=== PATIENT | male | born 1940 | race Caucasian/White ===

== ENCOUNTER → 2016-12-01 | Outpatient (CLI) | payer MEDICARE, OTHER ==
[~2016-12-01] MED LIST: ALPR0.2550 PO; ALPR0.5T72 PO; ASP81CT PO; ASP81TEC PO; ASPI-892 PO; ATOR10TA66 PO; CLOP75TA PO; DICY20TA10 PO; EZET10TA5 PO; FENO145T2 PO; GABA100T PO; HYDR-3714 PO; ISM30TCR PO; METO25TA PO; MIRT15TA6 PO; OMEG-12 PO; OMEP40CA36 PO; ONDA8TAB2 PO; OXYC-12 PO; PNT40TEC PO; POLY17PO23 PO; PRAS10TA6 PO; PRED20TA PO; TRAM50TA2 PO; TRIA1TAB5 PO; UBID100C27 PO
--- OUTSIDE RECORDS SUMMARY | 2016-12-01 10:46 | XMS REPORT | Continuity of Care Document ---
Author Author [facility] Organization [facility] Address Unknown Phone Unavailable Care Team Providers Care Service Writer Name Role Phone MOLLY BARNHART MD PCP Insurance Providers Payer Name Policy Number Subscriber Name Relationship Wps Medicare [id number] Ingrid Shaikh 18 Self / Same As Patient Comm Crossover Enter Ins Name [id number] Ingrid Lackey 18 Self / Same As Patient Advance Directives Directive Response Recorded Date/Time Advance Directives No 04/25/15 11:17am Health Care Power of J2Ee Java Developer No 02/03/12 2:15pm Organ Donor No 04/25/15 11:17am Resuscitation Status Full Code 04/25/15 11:17am Problems No known problems or medical conditions. Medications Medication Dose Route Sig Days/Qty Instructions Order Date Discontinued Date Status Gabapentin (Neurontin) 100 Mg PO THREE TIMES A DAY 02/28/11 Discontinued Alprazolam 0.25 Mg PO Q8HR PRN 02/28/11 04/25/15 Discontinued Dicyclomine Hcl 20 Mg PO TWICE A DAY PRN 02/28/11 Active Metoprolol Succinate (Toprol Xl) 12.5 Mg PO TWICE A DAY take half tab twice daily 02/28/11 Active Ezetimibe 10 Mg PO DAILY 02/28/11 04/25/15 Discontinued Clopidogrel Bisulfate 75 Mg PO DAILY 02/28/11 03/25/11 Discontinued Triamterene/Hydrochlorothiazid 0.5 Tab PO DAILY 02/28/11 03/26/11 Discontinued Aspirin 81 Mg PO DAILY 02/28/11 03/26/11 Discontinued Ubidecarenone 100 Mg PO BEDTIME 02/28/11 04/25/15 Discontinued Omeprazole 40 Mg PO DAILY PRN 02/28/11 03/26/11 Discontinued Isosorbide Mononitrate 30 Mg PO DAILY 03/02/11 02/03/12 Discontinued Prasugrel Hydrochloride 10 Mg PO DAILY 03/02/11 03/26/11 Discontinued Aspirin 162 Mg PO DAILY 03/26/11 02/03/12 Discontinued Omeprazole 20 Mg PO AC AND HS 03/26/11 04/25/15 Discontinued Prasugrel Hydrochloride 10 Mg PO DAILY 03/26/11 04/25/15 Discontinued Isosorbide Mononitrate 30 Mg PO DAILY 30 Qty 02/04/12 04/25/15 Discontinued Clopidogrel Bisulfate 1 Each PO DAILY 07/23/13 Active Fenofibrate 1 Each PO DAILY 07/23/13 04/25/15 Discontinued Aspirin 81 Mg PO 04/25/15 Active Pantoprazole Sod 40 Mg PO DAILY 04/25/15 Active Atorvastatin Calcium 10 Mg PO BEDTIME 04/25/15 Active Mirtazapine (Remeron) 1 Each PO BEDTIME 04/25/15 Active Ondansetron Hcl 8 Mg PO THREE TIMES A DAY PRN NAUSEA 04/25/15 Active Alprazolam 0.25 Mg PO THREE TIMES A DAY PRN ANXIETY 04/25/15 Active Tramadol Hcl 50 Mg PO THREE TIMES A DAY PRN PAIN 04/25/15 Active [place]-3/Dha/Epa/Fish Oil 1,000 Mg PO THREE TIMES A DAY 04/25/15 Active Social History Social History Problem Response Recorded Date/Time Recent Foreign Travel No 04/25/2015 11:26am Smoking Status Never a Smoker 04/25/2015 11:27am Query Response Start Date Stop Date Smoking Status Never a Smoker Hospital Discharge Instructions No hospital discharge instructions. Plan of Care No plan of care. Functional Status Query Response Date Recorded Patient Orientation Person Place Time Situation April 25, 2015 7:12pm Allergies, Adverse Reactions, Alerts Allergen Type Severity Reaction Status Last Updated Sulfa (Sulfonamide Antibiotics) ([id number]) Allergy NAUSEA Active 02/28 Immunizations No immunization records. Vital Signs Acute Vital Signs Vital Response Date/Time Temperature (Fahrenheit) 97.6 degrees F (97.6 - 99.5) Temperature (Calculated Celsius) 36.61102 degrees C (36.4 - 37.5) Temperature Source Temporal Pulse Rate (adult) 59 bpm (60 - 90) Respiratory Rate 20 bpm (12 - 24) O2 Sat by Pulse Oximetry 97 % (88 - 100) Blood Pressure 110/69 mm Hg Blood Pressure Mean 83 mm Hg Pain Pain Intensity 0 Height (Feet) 5 feet Height (Inches) 9.00 inches Height (Calculated Centimeters) 175.061905 cm Weight (Pounds) 180 pounds Weight (Calculated Grams) 41797.627 gm Weight (Calculated Kilograms) 81.713379 kilograms Calculated BMI 26.58 Results Laboratory Results Test Name Result Units Flags Reference Collection Date/Time Result Date/ Time Comments White Blood Count 5.3 10^3/uL 4.3-11.0 04/25/2015 11:04/25/2015 11 :31am Red Blood Count 4.86 10^6/uL 4.35-5.85 04/25/2015 11:04/25/2015 11 :31am Hemoglobin 15.0 G/DL 13.3-17.7 04/25/2015 11:04/25/2015 11:31am Hematocrit 42 % 40-54 04/25/2015 11:04/25/2015 11:31am Mean Corpuscular Volume 86 FL 80-99 04/25/2015 11:04/25/2015 11: 31am Mean Corpuscular Hemoglobin 31 PG 25-34 04/25/2015 11:04/25/2015 11:31am Mean Corpuscular Hemoglobin Concent 36 G/DL 32-36 04/25/2015 11: 11:31am Red Cell Distribution Width 13.5 % 10.0-14.5 04/25/2015 11:2014 11:31am Platelet Count 145 10^3/uL 130-400 04/25/2015 11:04/25/2015 11: 31am Mean Platelet Volume 10.3 FL 7.4-10.4 04/25/2015 11:04/25/2015 11: 31am Prothrombin Time 13.6 SEC 12.2-14.7 04/25/2015 11:24am 04/25/2015 11: 42am INR Comment 1.1 0.8-1.4 04/25/2015 11:24am 04/25/2015 11:42am INTERPRETIVE DATA SUGGESTED THERAPEUTIC RANGE FOR INR'S: VENOUS THROMBOSIS, PULMONARY EMBOLISM, OR PREVENTION OF SYSTEMIC EMBOLISM (EG. IN ATRIAL FIBRILLATION): 2.0 - 3.0 MECHANICAL PROSTHETIC HEART VALVES: 2.5 - 3.5* *NOTE: INR'S UP TO 4.5 MAY BE NECESSARY IN SELECTED GROUPS OF HIGH RISK PATIENTS. [place] [place] [employer]ST PH[employer]ICIANS CONSENSUS CONFERENCE ON ANTITHROMBOTIC THERAPY (2000). Activated Partial Thromboplast Time 34 SEC 24-35 04/25/2015 11:24am 11:42am Urine Color YELLOW 04/25/2015 11:04/25/2015 11:40am Urine Clarity CLEAR 04/25/2015 11:04/25/2015 11:40am Urine pH 6 5-9 04/25/2015 11:04/25/2015 11:40am Urine Specific [place] 1.015 * 1.016-1.022 04/25/2015 11:2014 11:40am Urine Protein NEGATIVE NEGATIVE 04/25/2015 11:10a04/25/2015 11: 40am Urine Glucose (UA) NEGATIVE NEGATIVE 04/25/2015 11:04/25/2015 11 :40am Urine RBC (Auto) NEGATIVE NEGATIVE 04/25/2015 11:04/25/2015 11: 40am Urine Ketones NEGATIVE NEGATIVE 04/25/2015 11:10a04/25/2015 11: 40am Urine Nitrite NEGATIVE NEGATIVE 04/25/2015 11:10a04/25/2015 11: 40am Urine Bilirubin NEGATIVE NEGATIVE 04/25/2015 11:10a04/25/2015 11: 40am Urine Urobilinogen NORMAL MG/DL NORMAL 04/25/2015 11:04/25/2015 11 :40am Urine Leukocyte Esterase NEGATIVE NEGATIVE 04/25/2015 11:10a2014 11:40am Urine RBC NONE /HPF 04/25/2015 11:10am 04/25/2015 11:40am Urine WBC NONE /HPF 04/25/2015 11:10a04/25/2015 11:40am Urine Bacteria NEGATIVE /HPF 04/25/2015 11:10a04/25/2015 11:40am Urine Squamous Epithelial Cells NONE /HPF 04/25/2015 11:2014 11:40am Urine Crystals NONE /LPF 04/25/2015 11:04/25/2015 11:40am Urine Casts NONE /LPF 04/25/2015 11:04/25/2015 11:40am Urine Mucus NEGATIVE /LPF 04/25/2015 11:04/25/2015 11:40am Urine Culture Indicated NO 04/25/2015 11:04/25/2015 11:40am Sodium Level 143 MMOL/L 135-145 04/25/2015 11:2404/25/2015 11:50am Potassium Level 4.3 MMOL/L 3.6-5.0 04/25/2015 11:2404/25/2015 11: 50am Chloride Level 109 MMOL/L H 98-107 04/25/2015 11:2404/25/2015 11:50am Carbon Dioxide Level 26 MMOL/L 21-32 04/25/2015 11:2404/25/2015 11: 50am Anion Gap 8 MMOL/L 5-14 04/25/2015 11:2404/25/2015 11:50am Blood Urea Nitrogen 19 MG/DL H 7-18 04/25/2015 11:04/25/2015 11: 50am Creatinine 1.28 MG/DL 0.60-1.30 04/25/2015 11:2404/25/2015 11:50am BUN/Creatinine Ratio 15 04/25/2015 11:04/25/2015 11:50am Estimat Glomerular Filtration Rate 55 04/25/2015 11:242014 11:50am GFR INTERPRETIVE DATA UNITS FOR ESTIMATED GFR (eGFR): mL/min/1.73 M2 REFERENCE RANGE FOR ESTIMATED GFR (eGFR) eGFR NORMAL eGFR >60 MODERATELY DECREASED eGFR 30-59 SEVERLY DECREASED eGFR 15-29 KIDNEY FAILURE <15 (OR DIALYSIS) Glucose Level 94 MG/DL 70-105 04/25/2015 11:2404/25/2015 11:50am Calcium Level 9.7 MG/DL 8.5-10.1 04/25/2015 11:2404/25/2015 11:50am Total Bilirubin 1.0 MG/DL 0.1-1.0 04/25/2015 11:04/25/2015 11: 50am Alkaline Phosphatase 58 U/L 40-136 04/25/2015 11:2404/25/2015 11: 50am Aspartate Amino Transf (AST/SGOT) 21 U/L 5-34 04/25/2015 11:242014 11:50am Alanine Aminotransferase (ALT/SGPT) 30 U/L 0-55 04/25/2015 11:24 11:50am Total Protein 6.9 G/DL 6.4-8.2 04/25/2015 11:04/25/2015 11:50am Albumin 4.2 G/DL 3.2-4.5 04/25/2015 11:2404/25/2015 11:50am Triglycerides Level 60 MG/DL <150 04/25/2015 11:am 04/25/2015 11: 50am Cholesterol Level 164 MG/DL < 200 04/25/2015 11:24am 04/25/2015 11: 50am HDL Cholesterol 41 MG/DL 40-60 04/25/2015 11:24am 04/25/2015 11:50am LDL Cholesterol Direct 101 MG/DL 1-129 04/25/2015 11:24am 04/25/2015 11 :50am VLDL Cholesterol 12 MG/DL 5-40 04/25/2015 11:24am 04/25/2015 11:50am Procedures Procedure Status Date Provider(s) Color Doppler echocardiography completed 04/22/15 BISI CAMPO MD Tracing only of electrocardiogram completed 04/25/15 BISI CAMPO MD Encounters Encounter Location Date/Time Departed [facility] 04/25/15 10:55am Registered Clinic [facility] 04/22/15 8:50am
--- NOTE | 2016-12-02 09:41 | ECHOCARDIOGRAPHY REPORT ---
PROCEDURE PHYSICIAN: BISI CAMPO DATE OF PROCEDURE: 12/01/2016 TWO DIMENSIONAL ECHOCARDIOGRAM REPORT PRIMARY PHYSICIAN: OTHER PHYSICIAN: REFERRING PHYSICIAN: Dr. Raissa Childers ORDERING PHYSICIAN: INDICATION FOR THE PROCEDURE: 1. Coronary artery disease. 2. Hypertension. MEASUREMENTS DERIVED VALUES LV DIAMETER (LAX) NORMALS NORMALS Diastolic 4 (3.6-5.2) Eject. Fract. 60% (60%+/-6%) Systolic (2.3-3.9) Diastolic Vol. % Shortening (0.22-0.42) Systolic Vol. Aortic Root IVS THICKNESS Diastolic 1 (0.6-1.1) LVPW THICKNESS Diastolic 1 (0.6-1.1) LA DIAMETER Systolic 3 (2.1-3.7) FINDINGS: 1. Technically difficult study. 2. The left ventricle is normal in size with normal contractility. Systolic function appeared to be normal. Estimated ejection fraction 60%. 3. The left atrium is normal in size. No clot or thrombus were seen within the left atrium. 4. The right atrium and right ventricle are normal in size. No clot or thrombus were seen within the right side. 5. Mitral valve is normal in morphology with mild mitral regurgitation noted by color Doppler flow. No mitral valve prolapse. No mitral valve stenosis. 6. Aortic valve leaflets were not well visualized. There is no significant aortic stenosis or regurgitation seen. 7. Tricuspid valve is normal in morphology with mild tricuspid regurgitation noted by color Doppler flow. Doppler across tricuspid valve estimated pulmonary artery pressure of 15+ right atrial pressure. 8. Pulmonic valve is functioning normally. 9. No pericardial effusion. CONCLUSION: 1. Technically difficult study. 2. Normal left ventricular size and systolic function. Estimated ejection fraction 60%. 3. Mild mitral and tricuspid regurgitation. 4. Estimated pulmonary artery pressure of 25 mmHg. Job ID: [id number] Dictated Date: 12/01/2016 17:29:54 Chemical Economist Date: 12/02/2016 09:37:30 / bright
== END ==
LOC: CARD 10:42
PROVIDERS: ATTEND Physician Assistant
DX: I25.10 Atherosclerotic heart disease of native coronary artery without angina pectoris (principal); I65.23 Occlusion and stenosis of bilateral carotid arteries; E78.2 Mixed hyperlipidemia; I10 Essential (primary) hypertension
CPT/HCPCS: 93306

== ENCOUNTER → 2016-12-06 | Outpatient (CLI) | payer MEDICARE, OTHER ==
[~2016-12-06] MED LIST changes: +CATHETER FLUSH 10 ML SYR IV PRN; +REGADENOSON 0.4 MG/5 ML SYR (LEXISCAN) IV ONE
--- OUTSIDE RECORDS SUMMARY | 2016-12-06 07:30 | XMS REPORT | Continuity of Care Document ---
Author Author [facility] Organization [facility] Address Unknown Phone Unavailable Care Team Providers Care Software Quality Assurance Analyst Name Role Phone MOLLY BARNHART MD PCP Insurance Providers Payer Name Policy Number Subscriber Name Relationship Wps Medicare [id number] Ingrid Shaikh 18 Self / Same As Patient Comm Crossover Enter Ins Name [id number] Ingrid Lackey 19 Self / Same As Patient Advance Directives Directive Response Recorded Date/Time Advance Directives No 04/25/15 11:17am Health Care Power of Quilt Sewer No 02/03/12 2:15pm Organ Donor No 04/25/15 [...] TIMES A DAY PRN PAIN 04/25/[address]-3/Dha/Epa/Fish Oil 1,000 Mg PO THREE TIMES A [...] Reaction Status Last Updated Sulfa (Sulfonamide Antibiotics) ([id number]) Allergy NAUSEA Active 02/28 Immunizations No immunization records. Vital Signs Acute Vital Signs Vital Response Date/Time Temperature (Fahrenheit) 97.6 degrees F (97.6 - 99.5) Temperature (Calculated Celsius) 36.52267 degrees C (36.4 - 37.5) Temperature Source Temporal Pulse Rate (adult) 59 bpm (60 - 90) Respiratory Rate 20 bpm (12 - 24) O2 Sat by Pulse Oximetry 97 % (88 - 100) Blood Pressure 110/69 mm Hg Blood Pressure Mean 83 mm Hg Pain Pain Intensity 0 Height (Feet) 5 feet Height (Inches) 9.00 inches Height (Calculated Centimeters) 175.284735 cm Weight (Pounds) 180 pounds Weight (Calculated Grams) 85949.627 gm Weight (Calculated Kilograms) 81.047586 kilograms Calculated BMI 26.58 Results Laboratory Results [...] SELECTED GROUPS OF HIGH RISK PATIENTS. [place] [place] [employer] CONSENSUS CONFERENCE ON ANTITHROMBOTIC THERAPY (2000). Activated Partial Thromboplast Time 34 SEC 24-35 04/25/2015 11:24am 11:42am Urine Color YELLOW 04/25/2015 11:04/25/2015 11:40am Urine Clarity CLEAR 04/25/2015 11:04/25/2015 11:40am Urine pH 6 5-9 04/25/2015 11:04/25/2015 11:40am Urine Specific [place] 1.015 * 1.016-1.022 04/25/2015 11:2014 11:40am Urine [...] Location Date/Time Departed Surgical Day [facility] 04/25/15 10:55am Registered Clinic [facility] 04/22/15 8:50am
[2016-12-06 09:12] VITALS: BP 133/91
[2016-12-06 09:19] VITALS: BP 149/99
[2016-12-06 09:22] VITALS: BP 161/97
--- NOTE | 2016-12-06 12:24 | STRESS TEST ---
PROCEDURE PHYSICIAN: BISI CAMPO DATE OF PROCEDURE: 12/06/2016 LEXISCAN MYOVIEW STRESS TEST REPORT REFERRING PHYSICIAN: Dr. Raissa Childers INDICATION: Coronary artery disease. BASELINE HEART RATE: 62 BASELINE BLOOD PRESSURE: 133/90 BASELINE EKG: Sinus rhythm with no ischemic changes. SUMMARY: The patient was injected with 10.33 mCi of technetium 99 Myoview and the resting images were obtained. Then the patient received 0.4 mg of Lexiscan followed by 32.1 mCi of technetium 99 Myoview. Throughout the test, there were no EKG changes, occasional PVCs were noted during recovery. The resting and stress images were reviewed and compared in the short axis, horizontal long axis, and vertical long axis views. Review of the images showed diaphragmatic attenuation with typical male pattern. No significant ischemia or infarction on SPECT images. SSS is 3, SDS 1, TID value 1.09. On the gated images, the left ventricle appeared to be normal size with normal contractility. Calculated ejection fraction 67%. CONCLUSION: 1. The patient tolerated Lexiscan well. 2. Diaphragmatic attenuation with typical male pattern. No significant ischemia or infarction on SPECT images. 3. Normal left ventricular size with normal contractility. Calculated ejection fraction 67%. Job ID: [id number] Dictated Date: 12/06/2016 11:48:10 Cashier Payments Received Date: 12/06/2016 12:22:08 / bright
== END ==
LOC: CARD 07:27
PROVIDERS: ATTEND Physician Assistant
DX: I25.10 Atherosclerotic heart disease of native coronary artery without angina pectoris (principal); I65.23 Occlusion and stenosis of bilateral carotid arteries; E78.2 Mixed hyperlipidemia; I10 Essential (primary) hypertension
CPT/HCPCS: 78452; 93017

== ENCOUNTER → 2019-07-11 | Outpatient (CLI) | payer MEDICARE, OTHER ==
[~2019-07-11] VITALS: Ht 175 cm; Wt 85.0 kg
[2019-07-11 08:57] VITALS: BP 143/87
[2019-07-11 09:02] VITALS: BP 148/103
--- NOTE | 2019-07-12 08:08 | STRESS TEST ---
DATE OF SERVICE: 07/11/2019 LEXISCAN MYOVIEW STRESS TEST REPORT REFERRING PHYSICIAN: Dr. Childers. Baseline heart rate is 64. Baseline blood pressure 143/87. Baseline EKG is sinus rhythm with no ischemic changes. In summary, the patient was injected with 10.89 mCi of technetium-99 Myoview and the resting images were obtained. Then, the patient received 0.4 mg of Lexiscan followed by 30.4 mCi of technetium-99 Myoview. Throughout the test, there were no EKG changes. The resting and stress images were reviewed and compared in the short axis, horizontal long axis, and vertical long axis views. Review of the images showed diaphragmatic attenuation with mild decreased uptake at the mid to apical inferolateral wall with mild reversibility, no significant ischemia was noted. SSS is 3, SDS 1, TID value 1.04. On the gated images, the left ventricle appeared to be normal size with normal contractility. Calculated ejection fraction 68%. CONCLUSION: 1. The patient tolerated Lexiscan well. 2. Diaphragmatic attenuation with typical male pattern with no significant ischemia or infarction on SPECT images. 3. Normal left ventricular size with normal contractility. Calculated ejection fraction 68%. Job ID: [id number] DocumentID: [id number] Dictated Date: 07/12/2019 06:43:34 Gravity Prospecting Operator Date: 07/12/2019 08:07:48 Dictated By: BISI CAMPO MD
== END ==
LOC: CARD 06:55
PROVIDERS: ATTEND Internal Medicine Cardiovascular Disease
DX: I25.10 Atherosclerotic heart disease of native coronary artery without angina pectoris (principal); E78.5 Hyperlipidemia, unspecified; I10 Essential (primary) hypertension
CPT/HCPCS: 78452; 93017

== ENCOUNTER → 2022-07-07 | Outpatient (CLI) | payer MEDICARE ==
[~2022-07-07] VITALS: Ht 175 cm; Wt 88.0 kg
[~2022-07-07] MED LIST changes: -CATHETER FLUSH 10 ML SYR IV PRN; +CATHETER FLUSH 10 ML SYR IVP PRN
[2022-07-07 09:40] VITALS: BP 144/106
--- NOTE | 2022-07-07 11:36 | Cardiology Stress Test Report ---
Stress Test Report Date of Procedure/Referring: Date of Procedure: Jul 07, 2022 PCP Molly Barnhart MD Admitting Physician Admitting Physician: Attending Physician: Mabel Reyes Indications: CAD Baseline Heart Rate: 64 Baseline Blood Pressure: Blood Pressure Systolic: 144 Blood Pressure Diastolic: 106 Baseline Vitals Vital Signs Date Time Temp Pulse Resp B/P (MAP) Pulse Ox O2 Delivery O2 Flow Rate FiO2 07/07/22 09:40 66 144/106 (119) Baseline EKG: Baseline EKG: NSR Summary After explaining the procedure to the patient, he signed a consent and then brought to the stress nuclear laboratory. Patient received 0.4 mg Lexiscan for stress test, ECG, heart rate and blood pressure were monitored continuously. Resting and stress dose of radio tracer were injected, imaging was acquired and reviewed in short axis, horizontal long axis and vertical long axis views. TID: 1.19 SSS: 7 SDS: 5 EF: 70 1. Patient tolerated Lexiscan well 2. Diaphragmatic attenuation with motion artifact, there is reversible ischemia involving the mid to apical inferior wall and inferolateral wall 3. Normal left ventricular size, ejection fraction 70% Copy Copies To 1: MOLLY BARNHART MD, BASHAR J MD Jul 07, 2022 11:36
== END ==
LOC: CARD 07:47
PROVIDERS: ATTEND Physician Assistant
DX: I25.10 Atherosclerotic heart disease of native coronary artery without angina pectoris (principal); I65.29 Occlusion and stenosis of unspecified carotid artery
CPT/HCPCS: 78452; 93017; A9502

== ENCOUNTER 2022-10-29 11:24 | Emergency (ER) | payer MEDICARE ==
[~2022-10-29] VITALS: Ht 175 cm; Wt 91.6 kg
[~2022-10-29 11:24] MED LIST changes: -CATHETER FLUSH 10 ML SYR IVP PRN; -REGADENOSON 0.4 MG/5 ML SYR (LEXISCAN) IV ONE
--- NOTE | 2022-10-29 11:58 | Diagnostic Imaging Report ---
EXAMINATION: Chest 1 view HISTORY: Chest pain COMPARISON: None available. FINDINGS: Heart size and pulmonary vasculature are normal. The lungs are clear without consolidation, pleural effusion, or pneumothorax. The osseous structures are intact. IMPRESSION: 1. No acute radiographic abnormality in the chest. Dictated by: Dictated on workstation # [id number]
[2022-10-29 12:13] LABS: POTASSIUM 4.2 MMOL/L (3.6-5.0)
[2022-10-29 12:14] LABS: CALCIUM 9.2 MG/DL (8.5-10.1)
[2022-10-29 12:15] LABS: TOTAL PROTEIN 6.7 GM/DL (6.4-8.2)
[2022-10-29] MEDS ORDERED: ASPIRIN 81 MG CHEW (CHILDREN'S ASA) PO ONE (12:15)
[2022-10-29 12:19] LABS: CREATININE SERUM 1.05 MG/DL (0.60-1.30)
[2022-10-29 12:21] LABS: MAGNESIUM 1.8 MG/DL (1.6-2.4)
[2022-10-29 12:25] LABS: HEMATOCRIT 45 % (40-54)
[2022-10-29 12:27] LABS: BASOPHILS # (AUTO) 0.1 10^3/uL (0.0-0.1); BASOPHILS % (AUTO) 1 % (0-10); EOSINOPHILS # (AUTO) 0.1 10^3/uL (0.0-0.3); EOSINOPHILS % (AUTO) 2 % (0-10); HEMOGLOBIN 16.2 g/dL (13.3-17.7); LYMPHOCYTES # (AUTO) 1.6 10^3/uL (1.0-4.0); LYMPHOCYTES % (AUTO) 28 % (12-44); MEAN CORPUSCULAR HEMOGLOBIN 32 pg (25-34); MEAN CORPUSCULAR HGB CONC 36 g/dL (32-36); MEAN CORPUSCULAR VOLUME 88 fL (80-99); MEAN PLATELET VOLUME 10.7 fL (9.0-12.2); MONOCYTES # (AUTO) 0.5 10^3/uL (0.0-1.0); MONOCYTES % (AUTO) 9 % (0-12); NEUTROPHILS # (AUTO) 3.4 10^3/uL (1.8-7.8); NEUTROPHILS % (AUTO) 60 % (42-75); PLATELET COUNT 137 10^3/uL (130-400); WHITE BLOOD COUNT 5.6 10^3/uL (4.3-11.0)
[2022-10-29 12:42] LABS: INR 1.1 (0.8-1.4); PROTHROMBIN TIME PATIENT 14.6 SEC (12.2-14.7)
--- NOTE | 2022-10-29 15:10 | ED Chest Pain ---
General Chief Complaint: Chest Pain Stated Complaint: INTERMITTENT CHEST PAINS | EARS RINGING Nursing Triage Note: PT AMBULATORY TO ER WITH SO. REPORTS CHEST PAIN ONSET AROUND 0600 AFTER WAKING UP, INTERMITTENT, DESCRIBED 'GAS IN CHEST'. PT TOOK SOME MYLANTA AND TOOK A XANAX. PT PAIN-FREE UPON ARRIVAL TO ER. Source: patient, old records Exam Limitations: no limitations History of Present Illness Date Seen by Provider: Oct 29, 2022 Time Seen by Provider: 11:31 Initial Comments This 82-year-old gentleman presents to the emergency room with complaint of chest pain described as "gas in my chest". Symptoms started around 0 600. He felt slightly nauseated. He reports these symptoms occur occasionally and are usually successfully treated with Mylanta and a dose of Xanax. He is usually able to burp after those treatments and resolve the pain. He was unable to resolve the pain today and decided to come to the emergency room. He also noted ringing in his ears and thought his blood pressure was high. He does indeed have significant hypertension on arrival. He denies any exacerbating or alleviating factors. He does have history of coronary artery disease and stents. Recent stress test showed reversible ischemia. He also has history of gastritis and esophagitis on review of his prior records including endoscopy. He inquired about hiatal hernia but this was not mentioned on prior CT or endoscopy report. He reports pain resolved by the time of my evaluation. He did take his medications today. His primary care provider is Dr. Childers, and his educational consultant is Dr. Liu. Allergies and Home Medications Allergies Coded Allergies: Sulfa (Sulfonamide Antibiotics) (Unverified Allergy, Unknown, NAUSEA, 04/28/15) Patient Home Medication List Home Medication List Reviewed: Yes Alprazolam (Alprazolam) 0.5 Mg Tab.rapdis, 0.25 MG PO TID PRN for ANXIETY, (Reported) Entered as Reported by: JOCELYN BURT on 04/25/15 1224 Aspirin (Aspirin Ec Tab) 81 Mg Tabec, 81 MG PO, (Reported) Entered as Reported by: JOCELYN BURT on 04/25/15 1209 Atorvastatin Calcium (Lipitor Tablet) 10 Mg Tablet, 10 MG PO HS, (Reported) Entered as Reported by: JOCELYN BURT on 04/25/15 1224 Clopidogrel Bisulfate (Plavix 75 Mg) 75 Mg Tablet, 1 EACH PO DAILY, (Reported) Entered as Reported by: PAUL KASPER on 07/23/13 0844 Dicyclomine Hcl (Dicyclomine Hcl) 20 Mg Tablet, 20 MG PO BID PRN, (Reported) Entered as Reported by: CORBY NEWTON on 02/28/11517 Metoprolol Succinate (Metoprolol Succinate Xl 25 Mg) 25 Mg Tab.sr.24h, 12.5 MG PO BID, (Reported) Entered as Reported by: CORBY NEWTON on 02/28/11517 Mirtazapine (Mirtazapine 15 Mg) 15 Mg Tablet, 1 EACH PO HS, (Reported) Entered as Reported by: JOCELYN BURT on 04/25/15 122 Chandler-3/Dha/Epa/Fish Oil (Fish Oil 1,000 Mg Ec Softgel) 1 Each Capsule.dr, 1,000 MG PO TID, (Reported) Entered as Reported by: JOCELYN BUTR on 04/25/15 1225 Ondansetron Hcl (Ondansetron Hcl) 8 Mg Tablet, 8 MG PO TID PRN for NAUSEA, (Reported) Entered as Reported by: JOCELYN BURT on 04/25/15 122 Oxycodone Hcl/Acetaminophen (Percocet 5-325 Mg Tablet) 1 Each Tablet, 1 EACH PO Q4-6H PRN Prescribed by: ELIN PARR on 04/27/151918 Pantoprazole Sod (Protonix Tab) 40 Mg Tab, 40 MG PO DAILY, (Reported) Entered as Reported by: JOCELYN BURT on 04/25/15 122 Polyethylene Glycol (Miralax 17 Gm Packet) 17 Gm Pack, 17 GM PO BID PRN for CONSTIPATION Prescribed by: ELIN PARR on 04/27/151911 Prednisone (Prednisone) 20 Mg Tablet, 20 MG PO DAILY Prescribed by: ELIN PARR on 04/27/151911 Tramadol Hcl (Tramadol Hcl) 50 Mg Tablet, 50 MG PO TID PRN for PAIN, (Reported) Entered as Reported by: JOCELYN BURT on 04/25/15 122 Review of Systems Review of Systems Constitutional: no symptoms reported EENTM: No Symptoms Reported Respiratory: No Symptoms Reported Cardiovascular: See HPI Gastrointestinal: See HPI Genitourinary: No Symptoms Reported Musculoskeletal: no symptoms reported Skin: no symptoms reported Psychiatric/Neurological: No Symptoms Reported Endocrine: No Symptoms Reported Hematologic/Lymphatic: No Symptoms Reported Past Oeqtzqh-Qamuae-Tajqkk Hx Patient Social History Tobacco Use?: No Use of E-Cig and/or Vaping dev: No Substance use?: No Alcohol Use?: Yes Alcohol Frequency: Once in a while Immunizations Up To Date First/Initial COVID19 Vaccinat: RECEIVED, UNK WHEN Second COVID19 Vaccination Anuj: RECEIVED, UNK WHEN Third COVID19 Vaccination Date: RECEIVED, UNK WHEN 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 Past Medical History Surgeries: Yes (Partial colon resection, hernia repair) Abdominal (Hernia repair x2, partial colon resection), Coronary Stent Respiratory: No Cardiac: Yes Coronary Artery Disease, Heart Attack, Hypertension Reproductive Disorders: No Genitourinary: Yes Renal Failure Gastrointestinal: Yes Gastroesophageal Reflux (Gastritis and esophagitis), Diverticulosis Musculoskeletal: No Endocrine: No HEENT: No Cancer: No Psychosocial: Yes Anxiety Physical Exam Vital Signs Vital Signs - First Documented 10/29/22 11:30 Temp 35.8 Pulse 77 Resp 20 B/P (MAP) 194/104 (134) Pulse Ox 100 O2 Delivery Room Air Capillary Refill : Height, Weight, BMI Height: 5'9" Weight: 180lbs. oz. 81.132977fp; 29.00 BMI Method:Stated General Appearance: No Apparent Distress, WD/WN HEENT: PERRL/EOMI, Normal ENT Inspection Neck: Normal Inspection; No JVD Respiratory: Chest Non Tender, Lungs Clear, Normal Breath Sounds Cardiovascular: Regular Rate, Rhythm, No Edema, No Murmur Gastrointestinal: Non Tender, Soft; No Distended Extremity: Normal Inspection, No Pedal Edema Neurologic/Psychiatric: Alert, Oriented x3, No Motor/Sensory Deficits, Normal Mood/Affect, orthopedic dentist II-XII Norm as Tested Skin: Normal Color, Warm/Dry Progress/Results/Core Measures Results/Orders Lab Results Laboratory Tests Test 10/29/22 11:57 10/29/22 12:20 10/29/22 14:10 Range/Units Sodium Level 138 135-145 MMOL/L Potassium Level 4.2 3.6-5.0 MMOL/L Chloride Level 107 98-107 MMOL/L Carbon Dioxide Level 21 21-32 MMOL/L Anion Gap 10 5-14 MMOL/L Blood Urea Nitrogen 14 7-18 MG/DL Creatinine 1.05 0.60-1.30 MG/DL Estimat Glomerular Filtration Rate 71 BUN/Creatinine Ratio 13 Glucose Level 97 70-105 MG/DL Calcium Level 9.2 8.5-10.1 MG/DL Corrected Calcium 9.2 8.5-10.1 MG/DL Magnesium Level 1.8 1.6-2.4 MG/DL Total Bilirubin 1.0 0.1-1.0 MG/DL Aspartate Amino Transf (AST/SGOT) 18 5-34 U/L Alanine Aminotransferase (ALT/SGPT) 31 0-55 U/L Alkaline Phosphatase 68 40-136 U/L Myoglobin 81.4 10.0-92.0 NG/ML Troponin I < 0.028 < 0.028 <0.028 NG/ML Total Protein 6.7 6.4-8.2 GM/DL Albumin 4.0 3.2-4.5 GM/DL White Blood Count 5.6 4.3-11.0 10^3/uL Red Blood Count 5.07 4.30-5.52 10^6/uL Hemoglobin 16.2 13.3-17.7 g/dL Hematocrit 45 40-54 % Mean Corpuscular Volume 88 80-99 fL Mean Corpuscular Hemoglobin 32 25-34 pg Mean Corpuscular Hemoglobin Concent 36 32-36 g/dL Red Cell Distribution Width 13.1 10.0-14.5 % Platelet Count 137 130-400 10^3/uL Mean Platelet Volume 10.7 9.0-12.2 fL Immature Granulocyte % (Auto) 0 % Neutrophils (%) (Auto) 60 42-75 % Lymphocytes (%) (Auto) 28 12-44 % Monocytes (%) (Auto) 9 0-12 % Eosinophils (%) (Auto) 2 0-10 % Basophils (%) (Auto) 1 0-10 % Neutrophils # (Auto) 3.4 1.8-7.8 10^3/uL Lymphocytes # (Auto) 1.6 1.0-4.0 10^3/uL Monocytes # (Auto) 0.5 0.0-1.0 10^3/uL Eosinophils # (Auto) 0.1 0.0-0.3 10^3/uL Basophils # (Auto) 0.1 0.0-0.1 10^3/uL Immature Granulocyte # (Auto) 0.0 0.0-0.1 10^3/uL Percent Immature Platelet Fraction 4.5 0.0-7.6 % Prothrombin Time 14.6 12.2-14.7 SEC INR Comment 1.1 0.8-1.4 Activated Partial Thromboplast Time 34 24-35 SEC B-Type Natriuretic Peptide 43.6 <100.0 PG/ML My Orders Orders - ELIN CHOI MD Cbc With Automated Diff (10/29/22 11:31) Magnesium (10/29/22 11:31) Chest 1 View, Ap/Pa Only (10/29/22 11:31) Ekg Tracing (10/29/22 11:31) Comprehensive Metabolic Panel (10/29/22 11:31) Myoglobin Serum (10/29/22 11:31) Protime With Inr (10/29/22 11:31) Partial Thromboplastin Time (10/29/22 11:31) O2 (10/29/22 11:31) Monitor-Rhythm Ecg Trace Only (10/29/22 11:31) Ed Iv/Invasive Line Start (10/29/22 11:31) Troponin I Wood (10/29/22 11:31) Aspirin Chewable Tablet (Baby Aspirin Ch (10/29/22 12:15) Bnp Wood (10/29/22 12:02) Troponin I Wood (10/29/22 14:00) Medications Given in ED Vital Signs/I&O 10/29/22 10/29/22 10/29/22 11:30 12:06 15:41 Temp 35.8 Pulse 77 68 Resp 20 18 B/P (MAP) 194/104 (134) 142/87 Pulse Ox 100 100 100 O2 Delivery Room Air Room Air Room Air Blood Pressure Mean: 134 Progress Progress Note : Progress Note Cardiac panel including CBC, CMP, magnesium, troponin, and myoglobin was unremarkable. Chest x-ray revealed no acute abnormalities. EKG demonstrated no ischemia. Repeat troponin after 2 hours was also negative. Pain did not return. Based on work-up and clinical presentation, pain is not likely of cardiac origin. I offered additional treatment for possible reflux such as Carafate. Patient declined and preferred to work on lifestyle changes and continue with Mylanta and his Xanax. Blood pressure improved without any additional treatment and was satisfactory prior to discharge. See discharge instructions for further discussion. Initial ECG Impression Date: Oct 29, 2022 Initial ECG Impression Time: 11:34 Initial ECG Rate: 78 Initial ECG Rhythm: Normal Sinus Initial ECG Impression: Normal Comment Normal sinus rhythm with no ST elevation or depression. No abnormal intervals or axis deviation. Diagnostic Imaging Diagonstic Imaging: Xray Plain Films/CT/US/NM/MRI: chest Comments NAME: [facility]IM[facility] SHAIKH [facility] REC#: [id number] PT STATUS: REG ER : 1940 PHYSICIAN: ELIN CHOI MD ADMIT DATE: 10/29/22/ER Signed Date of Exam:10/29/22 CHEST 1 VIEW, AP/PA ONLY EXAMINATION: Chest 1 view HISTORY: Chest pain COMPARISON: None available. FINDINGS: Heart size and pulmonary vasculature are normal. The lungs are clear without consolidation, pleural effusion, or pneumothorax. The osseous structures are intact. IMPRESSION: 1. No acute radiographic abnormality in the chest. Dictated by: Dictated on workstation # [id number] Dict: 10/29/22 1156 Trans: 10/29/22 1341 [facility] [id number] Interpreted by: MICHOACANO DUONG DO Electronically signed by: MICHOACANO DUONG DO 10/29/22 1341 Departure Impression Primary Impression: Atypical chest pain Additional Impressions: History of coronary artery disease Hx of gastroesophageal reflux (GERD) Hypertension Qualified Codes: I10 - Essential (primary) hypertension Disposition: HOME, SELF-CARE Condition: Improved Departure-Patient Inst. Decision time for Depature: 15:07 Referrals: BRIAN GREEN MD,MOLLY DENNEY MD, MD (PCP/Family) Primary Care Physician Patient Instructions: Chest Pain, Adult ED Add. Discharge Instructions: Your heart and lung work-up was normal in the emergency room. Please call that Dr. Liu's office is soon as possible to schedule a follow-up. Continue taking pantoprazole as previously prescribed for acid reflux. Also avoid the following: Eating large meals, eating close to bedtime, caffeine, carbonation, citrus fruits and juices, tomato products, mints, alcohol, tobacco, fatty/greasy foods, spicy foods, NSAID medications such as ibuprofen or naproxen, or anything else you know irritates your stomach. Elevating your bed or your head at night when you lay down will allow gravity to work with your body to prevent reflux. Weight loss can also help reduce pressure around your stomach. Please seek referral to Dr. Green, a general surgeon of your choosing, or endocrinology teacher for repeat endoscopy. Return to the emergency room if you have worsening or recurrent symptoms despite following these instructions. All discharge instructions reviewed with patient and/or family. Voiced understanding. Copy Copies To 1: BRIAN GREEN MD Copies To 2: BISI LIU MD, JOSHUA T MD Oct 29, 2022 15:10
[2022-10-29 15:41] VITALS: BP 142/87
== END 2022-10-29 15:41 | disposition home or self-care (01) ==
LOC: EDUNIT# 11:24 → ER 11:27
DX: I10 Essential (primary) hypertension (principal); I25.10 Atherosclerotic heart disease of native coronary artery without angina pectoris; Z87.19 Personal history of other diseases of the digestive system; Z95.5 Presence of coronary angioplasty implant and graft; Z98.890 Other specified postprocedural states
CPT/HCPCS: 36415; 71045; 80053; 83735; 83874; 83880; 84484; 85025; 85610; 85730; 93005; 93041